=== PATIENT | male | born 1965 | race Caucasian/White ===

== ENCOUNTER 2017-04-26 21:03 | Emergency (ER) | payer BC ==
[2017-04-26] MEDS ORDERED: solu-MEDROL 125 MG IV ONE (21:18)
[2017-04-26] MEDS ORDERED: BENADRYL 50 MG/ML ONE (21:18)
[2017-04-26] MEDS ORDERED: Sodium Chloride 0.9% 1000 ML 1,000 ML IV STA (21:18)
[2017-04-26] MEDS ORDERED: BENADRYL 50 MG/ML IV ONE (21:18)
[2017-04-26] MEDS ORDERED: DUONEB 0.5-3 MG/3 ml Neb IH ONE ×2 (21:18→21:29)
[2017-04-26] MEDS ORDERED: solu-MEDROL 125 MG ONE (21:19)
[2017-04-26] MEDS ORDERED: Sodium Chloride 0.9% 1000 ML 1,000 ML ONE (21:19)
[2017-04-26] MEDS: Pepcid 20 MG PO ONE ×3 (21:22→22:56)
[2017-04-26] MEDS ORDERED: Pepcid 20 MG VIAL IV ONE ×2 (21:25→22:49)
--- NOTE | 2017-04-26 21:49 | ERPHSYRPT ---
- History of Present Illness Time Seen by Provider: 04/26/17 21:40 Source: patient Exam Limitations: no limitations Patient Subjective Stated Complaint: to er c/o allergic reaction to shrimp pt reports throat sore watery eyes and eye swelling Triage Nursing Assessment: to er c/o allergic reaction with swelling noted to left eye and face pt states throat sore though no swelling of tounge or lips present. pt a@xo denies any difficulty breathig Physician History: Pt has known allergies to seafood, had some fried shrimp 45 minutes ago. His right eyelid started swelling up about 30 minutes ago, started feeling throat pain, but denies swelling, wheezing, or chest pain, nausea, he speaks in full sentences not stridorous. Timing/Duration: today, hour(s) (0.5) Severity: mild Modifying Factors: Improves With: other (none) Associated Symptoms: other (facial swelling) Allergies/Adverse Reactions: shrimp Allergy (Uncoded 04/26/17 21:10) Hx Tetanus, Diphtheria Vaccination/Date Given: No Hx Influenza Vaccination/Date Given: Yes - Review of Systems Constitutional: No Symptoms Immunological/Allergic: Food Allergy All Other Systems: Reviewed and Negative - Past Medical History Pertinent Past Medical History: No - Past Surgical History Past Surgical History: No - Social History Smoking Status: Never smoker Drug Use: none - Nursing Vital Signs Nursing Vital Signs: Initial Vital Signs Temperature 98.2 F 04/26/17 21:10 Pulse Rate 83 04/26/17 21:10 Respiratory Rate 18 04/26/17 21:10 O2 Sat by Pulse Oximetry 97 04/26/17 21:10 - Physical Exam General Appearance: no apparent distress Eye Exam: other (right upper eyelid with edema, but able to open right eye.) Ears, Nose, Throat Exam: normal ENT inspection, TMs normal, pharynx normal Neck Exam: normal inspection, non-tender, supple, No mass, No JVD Respiratory Exam: normal breath sounds, lungs clear, airway intact, No chest tenderness, No respiratory distress Cardiovascular Exam: regular rate/rhythm, normal heart sounds, normal peripheral pulses, No murmur Gastrointestinal/Abdomen Exam: soft, normal bowel sounds, No tenderness Back Exam: normal inspection, No CVA tenderness Extremity Exam: normal inspection, No pedal edema Neurologic Exam: alert, oriented x 3, cooperative, normal mood/affect Skin Exam: normal color, warm, dry, No rash Lymphatic Exam: No adenopathy SpO2: 98 Oxygen Delivery: Room Air - Radiology Exams Chest X-ray Interpretation: Interpreted by me, Negative Other X-ray Interpretation: Interpreted by me, Negative Ordered Tests: Active Orders 24 hr Category Date Time Status Pulse Oximetry (ED) STAT Care 04/26/17 21:18 Active CHEST 1 VIEW (PORTABLE) Stat Exams 04/26/17 21:21 Taken NECK SOFT TISSUE Stat Exams 04/26/17 Taken Respiratory Nebulizer STAT RT 04/26/17 21:18 Active Medication Summary Discontinued Medications Generic Name Dose Route Start Last Admin Trade Name Freq PRN Reason Stop Dose Admin Albuterol/Ipratropium 3 ml 04/26/17 21:18 04/26/17 21:30 Duoneb 0.5-3 Mg/3 Ml Neb IH 04/26/17 21:19 3 ml STAT ONE Administration Albuterol/Ipratropium Confirm 04/26/17 21:29 Duoneb 0.5-3 Mg/3 Ml Neb Administered 04/26/17 21:30 Dose 3 ml IH .STK-MED ONE Diphenhydramine HCl 25 mg 04/26/17 21:18 04/26/17 21:24 Benadryl 50 Mg/Ml IV 04/26/17 21:19 25 mg STAT ONE Administration Diphenhydramine HCl Confirm 04/26/17 21:18 Benadryl 50 Mg/Ml Administered 04/26/17 21:19 Dose 50 mg .ROUTE .STK-MED ONE Famotidine 20 mg 04/26/17 21:18 04/26/17 21:24 Pepcid 20 Mg PO 04/26/17 21:19 20 mg STAT ONE Administration Famotidine Confirm 04/26/17 21:25 Pepcid 20 Mg Vial Administered 04/26/17 21:26 Dose 20 mg IV .STK-MED ONE Sodium Chloride 1,000 mls @ 999 mls/hr 04/26/17 21:18 04/26/17 21:24 Sodium Chloride 0.9% 1000 Ml IV 04/26/17 22:18 999 mls/hr .Q1H1M STA Administration Sodium Chloride Confirm 04/26/17 21:19 Sodium Chloride 0.9% 1000 Ml Administered 04/26/17 21:20 Dose 1,000 mls @ ud .ROUTE .STK-MED ONE Methylprednisolone Sodium Succinate 125 mg 04/26/17 21:18 04/26/17 21:24 Solu-Medrol 125 Mg IV 04/26/17 21:19 125 mg STAT ONE Administration Methylprednisolone Sodium Succinate Confirm 04/26/17 21:19 Solu-Medrol 125 Mg Administered 04/26/17 21:20 Dose 125 mg .ROUTE .STK-MED ONE - Progress Progress: improved Progress Note: 04/26/17 22:52 Improved, swelling of the right upper eyelid improved, no difficulty breathing or stridor, stable. - Departure Time of Disposition: 22:53 Departure Disposition: Home Clinical Impression: Allergic reaction Qualifiers: Encounter type: initial encounter Qualified Code(s): T78.40XA - Allergy, unspecified, initial encounter Condition: Stable Critical Care Time: No Referrals: SADIQ PETERS [Primary Care Provider] - Additional Instructions: Rest x 2-3 days, drink plenty of fluids, avoid seafood! Return if severe swelling, difficulty breathing, throat swelling! Prescriptions: Epinephrine [Epipen] 0.3 mg IM DAILY PRN PRN #1 ml PRN Reason: Allergies Methylprednisolone [Medrol 4 mg Dose Pack] 4 mg PO UD 5 Days tab
[2017-04-26 23:25] VITALS: BP 132/81; PULSE 78; O2SAT 94
--- NOTE | 2017-04-27 11:03 | XRAY ---
Indication: Allergic reaction. Comparison: None 2 views of the neck obtained with special attention to the soft tissues. No bony, articular, or soft tissue abnormalities.
--- NOTE | 2017-04-27 11:03 | XRAY ---
Indication: Allergic reaction. Comparison: None Portable chest demonstrates subcarinal calcified nodes. Remaining heart, lungs, and bony thorax normal.
== END 2017-04-26 23:30 | disposition home or self-care (01) ==
LOC: ED 21:03
DX: T78.1XXA Other adverse food reactions, not elsewhere classified, initial encounter (principal)
CPT/HCPCS: 70360; 71010; 94640; 96374; 96375; 99284; J1200; J2930; A9270-GY

== ENCOUNTER 2017-10-13 07:12 | Emergency (ER) | payer BC ==
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
[2017-10-13 07:28] VITALS: O2SAT 98
[2017-10-13] MEDS ORDERED: TORAdol 30 mg Injection IV ONE (08:01)
[2017-10-13] MEDS ORDERED: Norflex 60 MG/2 ML IM ONE (08:01)
[2017-10-13] MEDS ORDERED: TORAdol 30 mg Injection ONE (08:08)
[2017-10-13] MEDS ORDERED: Norflex 60 MG/2 ML ONE (08:09)
[2017-10-13 08:56] VITALS: BP 123/76; PULSE 78
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
== END 2017-10-13 09:05 | disposition home or self-care (01) ==
LOC: ED 07:12
DX: M79.602 Pain in left arm (principal); M54.5 Low back pain; M25.522 Pain in left elbow; M25.561 Pain in right knee; M25.512 Pain in left shoulder; V43.52XA Car driver injured in collision with other type car in traffic accident, initial encounter
CPT/HCPCS: 72110; 72170; 73080; 96372; 99284; J1885; J2360

== ENCOUNTER 2018-09-03 11:36 | Day surgery (SDC) | payer BC ==
[2018-09-03] MEDS ORDERED: Ketamine HCl 50 MG/ML IJ ONE (11:37)
[2018-09-03] MEDS ORDERED: LIDOCAINE HCL 2% 100 MG/5 ML IJ ONE (11:37)
[2018-09-03] MEDS ORDERED: DIPRIVAN 200 MG/20 ML IV ONE (11:37)
[2018-09-03] MEDS ORDERED: Depo-Medrol 40 MG/ML IM ONE (11:37)
[2018-09-03] MEDS ORDERED: Xylocaine-Mpf 2% 5 Ml Vial IJ ONE (11:37)
--- NOTE | 2018-09-03 15:05 | XRAY ---
9 seconds fluoroscopy time in surgery for L3-S1 MBB.
--- NOTE | 2018-09-03 15:08 | XRAY ---
Indication: Bilateral L3-S1 MBB. Intraoperative fluoroscopy was provided for 9 seconds. Single digital spot image submitted for interpretation demonstrates posterior needle tips in the expected region of the left and right L3-S1 nerve roots. Correlate with intraoperative findings/report.
[2018-09-03] MEDS ORDERED: Lactated Ringers 1,000 ML IV ONE (17:11)
== END 2018-09-03 13:40 | disposition home or self-care (01) ==
LOC: SDC-PAIN 11:36
PROVIDERS: ATTEND Psychiatry & Neurology Pain Medicine
DX: M47.816 Spondylosis without myelopathy or radiculopathy, lumbar region (principal); I10 Essential (primary) hypertension; Z79.899 Other long term (current) drug therapy
CPT/HCPCS: 64493; 64494; 64495; 72020; 77002; J1030; J2704

== ENCOUNTER 2018-10-01 09:44 | Day surgery (SDC) | payer BC ==
[2018-10-01] MEDS ORDERED: Depo-Medrol 40 MG/ML IM ONE (09:45)
[2018-10-01] MEDS ORDERED: DIPRIVAN 200 MG/20 ML IV ONE (09:45)
[2018-10-01] MEDS ORDERED: Ketamine HCl 50 MG/ML IJ ONE (09:45)
[2018-10-01] MEDS ORDERED: Marcaine 0.5% SDV 10 ML IJ ONE (09:45)
[2018-10-01] MEDS ORDERED: Lactated Ringers 1,000 ML IV ONE (12:44)
--- NOTE | 2018-10-01 13:14 | XRAY ---
Indication: Bilateral SI joint injection. Intraoperative fluoroscopy was provided for 17 seconds. 4 digital spot images submitted for interpretation demonstrates posterior needle tips projecting over the inferior left and right SI joints. Correlate with intraoperative findings/report.
--- NOTE | 2018-10-01 13:18 | XRAY ---
17 seconds fluoroscopy time in surgery for bilateral SI joint injections.
== END 2018-10-01 11:10 | disposition home or self-care (01) ==
LOC: SDC-PAIN 09:44
PROVIDERS: ATTEND Psychiatry & Neurology Pain Medicine
DX: M46.1 Sacroiliitis, not elsewhere classified (principal); I10 Essential (primary) hypertension; Z79.899 Other long term (current) drug therapy
CPT/HCPCS: 27096; 72202; 77002; J1030; J2704; G0260

== ENCOUNTER 2018-11-05 10:43 | Day surgery (SDC) | payer BC ==
[2018-11-05] MEDS ORDERED: Xylocaine-Mpf 2% 5 Ml Vial IJ ONE (10:44)
[2018-11-05] MEDS ORDERED: Depo-Medrol 40 MG/ML IM ONE (10:44)
[2018-11-05] MEDS ORDERED: DIPRIVAN 200 MG/20 ML IV ONE (11:59)
[2018-11-05] MEDS ORDERED: Ketamine HCl 50 MG/ML ONE (12:00)
--- NOTE | 2018-11-05 13:06 | XRAY ---
Indication: Bilateral L4-S1 MBB. Intraoperative fluoroscopy was provided for 7 seconds. Single digital spot image submitted for interpretation demonstrates posterior needle tips projecting over the expected course of the left and right L4-S1 nerve roots. Correlate with intraoperative findings/report.
--- NOTE | 2018-11-05 13:09 | XRAY ---
7 seconds of fluoroscopy was used in surgery for bilateral L4-L5, L5-S1 MBB.
[2018-11-05] MEDS ORDERED: Lactated Ringers 1,000 ML IV ONE (13:34)
== END 2018-11-05 12:25 | disposition home or self-care (01) ==
LOC: SDC-PAIN 10:43
PROVIDERS: ATTEND Psychiatry & Neurology Pain Medicine
DX: M47.816 Spondylosis without myelopathy or radiculopathy, lumbar region (principal); I10 Essential (primary) hypertension
CPT/HCPCS: 64493; 64494; 72020; 77002; J1030; J2704

== ENCOUNTER 2018-12-17 09:06 | Day surgery (SDC) | payer BC ==
[2018-12-17] MEDS ORDERED: Marcaine 0.5% SDV 10 ML IJ ONE (09:07)
[2018-12-17] MEDS ORDERED: Xylocaine 1% Vial 30 ML PF IJ ONE (09:07)
[2018-12-17] MEDS ORDERED: Depo-Medrol 40 MG/ML IM ONE (09:07)
[2018-12-17] MEDS ORDERED: DIPRIVAN 200 MG/20 ML IV ONE (10:30)
[2018-12-17] MEDS ORDERED: Ketamine HCl 50 MG/ML ONE (10:30)
[2018-12-17] MEDS ORDERED: Lactated Ringers 1,000 ML IV ONE (11:16)
--- NOTE | 2018-12-17 16:34 | XRAY ---
20 seconds fluoroscopy time in surgery for left L4-S1 RFA.
== END 2018-12-17 11:10 | disposition home or self-care (01) ==
LOC: SDC-PAIN 09:06
PROVIDERS: ATTEND Psychiatry & Neurology Pain Medicine
DX: M47.816 Spondylosis without myelopathy or radiculopathy, lumbar region (principal); I10 Essential (primary) hypertension; Z79.899 Other long term (current) drug therapy
CPT/HCPCS: 64635; 64636; 72100; 77002; J1030; J2001; J2704

== ENCOUNTER 2019-01-07 11:17 | Day surgery (SDC) | payer BC ==
[2019-01-07] MEDS ORDERED: Xylocaine 1% Vial 30 ML PF IJ ONE (11:18)
[2019-01-07] MEDS ORDERED: Depo-Medrol 40 MG/ML IM ONE (11:18)
[2019-01-07] MEDS ORDERED: Marcaine 0.5% SDV 10 ML IJ ONE (11:18)
[2019-01-07] MEDS ORDERED: DIPRIVAN 200 MG/20 ML IV ONE (12:18)
[2019-01-07] MEDS ORDERED: Ketamine HCl 50 MG/ML ONE (12:18)
[2019-01-07] MEDS ORDERED: Versed 2 MG/2 ML Injection ONE (12:22)
--- NOTE | 2019-01-07 13:44 | XRAY ---
Indication: Right L4-S1 RFA. Intraoperative fluoroscopy was provided for 19 seconds. 3 digital spot images submitted for interpretation demonstrates posterior needle tips projecting over the expected course of the right L4-S1 nerve roots. Correlate with intraoperative findings/report.
--- NOTE | 2019-01-07 13:46 | XRAY ---
19 seconds of fluoroscopy was used in surgery for a right L4-L5 and L5-S1 RFA.
[2019-01-07] MEDS ORDERED: Lactated Ringers 1,000 ML IV ONE (14:20)
== END 2019-01-07 13:03 | disposition home or self-care (01) ==
LOC: SDC-PAIN 11:17
PROVIDERS: ATTEND Psychiatry & Neurology Pain Medicine
DX: M47.816 Spondylosis without myelopathy or radiculopathy, lumbar region (principal); I10 Essential (primary) hypertension; Z79.899 Other long term (current) drug therapy
CPT/HCPCS: 64635; 64636; 72100; 77002; J1030; J2001; J2250; J2704

== ENCOUNTER 2021-02-15 12:19 | Day surgery (SDC) | payer BC ==
[2021-02-15] MEDS ORDERED: Depo-Medrol 80 MG/ML IM ONE (12:20)
[2021-02-15] MEDS ORDERED: BUPIVACAINE 0.5% VIAL IJ ONE (12:20)
[2021-02-15] MEDS ORDERED: DIPRIVAN 200 MG/20 ML IV ONE (13:50)
--- NOTE | 2021-02-15 16:24 | XRAY ---
Indication: Bilateral L4-S1 MBB. Intraoperative fluoroscopy provided for 15 seconds. Single digital spot image submitted for interpretation demonstrates posterior needle tips projecting over the expected left and right L4-S1 nerve roots. Correlate with intraoperative findings/report.
--- NOTE | 2021-02-15 16:31 | XRAY ---
15 seconds of fluoroscopy was used in surgery for a bilateral L4-S1 MBB.
[2021-02-15] MEDS ORDERED: Lactated Ringers 1,000 ML IV ONE (17:28)
== END 2021-02-15 14:15 | disposition home or self-care (01) ==
LOC: SDC-PAIN 12:19
PROVIDERS: ATTEND Psychiatry & Neurology Pain Medicine
DX: M47.816 Spondylosis without myelopathy or radiculopathy, lumbar region (principal); Z79.899 Other long term (current) drug therapy
CPT/HCPCS: 64493; 64494; 72020; 77002; J1040; J2704

== ENCOUNTER 2021-07-12 10:48 | Day surgery (SDC) | payer BC ==
[2021-07-12] MEDS ORDERED: Xylocaine 1% Vial 30 ML PF IJ ONE (10:49)
[2021-07-12] MEDS ORDERED: BUPIVACAINE 0.5% VIAL IJ ONE (10:49)
[2021-07-12] MEDS ORDERED: Depo-Medrol 40 MG/ML IM ONE (10:49)
[2021-07-12] MEDS ORDERED: Lactated Ringers 1,000 ML IV ONE (12:49)
[2021-07-12] MEDS ORDERED: Versed 2 MG/2 ML Injection ONE (14:21)
[2021-07-12] MEDS ORDERED: DIPRIVAN 200 MG/20 ML IV ONE (14:21)
--- NOTE | 2021-07-12 14:56 | XRAY ---
Indication: Left L4-S1 RFA. Intraoperative fluoroscopy provided for 38 seconds. 4 digital spot images submitted for interpretation demonstrates posterior needle tips projecting over the left L4-S1 nerve roots. Correlate with intraoperative findings/report.
--- NOTE | 2021-07-12 15:06 | XRAY ---
38 seconds of fluoroscopy was used in surgery for a left L4-S1 RFA.
== END 2021-07-12 13:43 | disposition home or self-care (01) ==
LOC: SDC-PAIN 10:48
PROVIDERS: ATTEND Psychiatry & Neurology Pain Medicine
DX: M47.816 Spondylosis without myelopathy or radiculopathy, lumbar region (principal); I10 Essential (primary) hypertension; Z79.899 Other long term (current) drug therapy
CPT/HCPCS: 64635; 64636; 72100; 77002; J1030; J2001; J2250; J2704

== ENCOUNTER 2021-07-13 10:46 | Day surgery (SDC) | payer BC ==
[~2021-07-13 10:46] MED LIST: DIPRIVAN 200 MG/20 ML IV ONE; Versed 2 MG/2 ML Injection ONE
[2021-07-13] MEDS ORDERED: BUPIVACAINE 0.5% VIAL IJ ONE (10:47)
[2021-07-13] MEDS ORDERED: Depo-Medrol 40 MG/ML IM ONE (10:47)
[2021-07-13] MEDS ORDERED: Xylocaine 1% Vial 30 ML PF IJ ONE (10:47)
[2021-07-13] MEDS ORDERED: Lactated Ringers 1,000 ML IV ONE (12:01)
[2021-07-13] MEDS ORDERED: Zofran 4 MG/2 ML VIAL ONE (12:20)
[2021-07-13] MEDS ORDERED: Decadron 4 MG INJ ONE (12:20)
[2021-07-13] MEDS ORDERED: DIPRIVAN 200 MG/20 ML IV ONE ×2 (12:20→12:30)
--- NOTE | 2021-07-14 09:31 | XRAY ---
Indication: Right L4-S1 RFA. Intraoperative fluoroscopy provided for 30 seconds. 3 digital spot image submitted for interpretation demonstrates posterior needle tips projecting over the expected right L4-S1 nerve roots. Correlate with intraoperative findings/report.
--- NOTE | 2021-07-14 10:08 | XRAY ---
30 seconds of fluoroscopy was used in surgery for a right L4-S1 RFA.
== END 2021-07-13 12:51 | disposition home or self-care (01) ==
LOC: SDC-PAIN 10:46
PROVIDERS: ATTEND Psychiatry & Neurology Pain Medicine
DX: M47.816 Spondylosis without myelopathy or radiculopathy, lumbar region (principal); Z79.899 Other long term (current) drug therapy
CPT/HCPCS: 64635; 64636; 72100; 77002; J1030; J1100; J2001; J2250; J2405; J2704